=== PATIENT | female | born 1945 | race Hispanic/Latino ===

== ENCOUNTER 2024-03-10 16:36 | Emergency (ER) | payer OTHER ==
[~2024-03-10] VITALS: Ht 149.9 cm; Wt 59.9 kg
[2024-03-10 17:08] VITALS: BP 170/67; PULSE 62; RESP 18; TEMP 98.3; O2SAT 100
[2024-03-10] MEDS: acetaMINOPHEN 500 MG TABLET PO ONE (17:52)
== END 2024-03-10 17:53 | disposition home or self-care (01) ==
LOC: EDH 16:36
DX: S16.1XXA Strain of muscle, fascia and tendon at neck level, initial encounter (principal); S00.03XA Contusion of scalp, initial encounter; F07.81 Postconcussional syndrome; E78.00 Pure hypercholesterolemia, unspecified; I10 Essential (primary) hypertension; Z90.49 Acquired absence of other specified parts of digestive tract; E05.90 Thyrotoxicosis, unspecified without thyrotoxic crisis or storm; W18.39XA Other fall on same level, initial encounter; Y93.89 Activity, other specified; Y92.89 Other specified places as the place of occurrence of the external cause; Y99.8 Other external cause status
CPT/HCPCS: 70450; 72125